=== PATIENT | male | born 1980 | race Caucasian/White ===

== ENCOUNTER 2023-08-31 12:46 | Emergency (ER) | payer OTHER, SELFPAY ==
[2023-08-31] VITALS (11 sets, daily range): BP systolic 121–148; BP diastolic 75–99; PULSE 70–90; RESP 8–95; TEMP 36.7; O2SAT 93–100
--- NOTE | ~2023-08-31 | CT_ITS ---
CT of the Abdomen and Pelvis: Indication: Abdominal pain Technique: 2.5 mm axial scans were obtained through the abdomen and pelvis following intravenous adm inistration of 100 cc of Omnipaque 350. Dose reduction technique was used on this scan by utilizing a utomated exposure control and iterative reconstruction technique. The dose-length product (DLP) was 4 79.55 mGy-cm. Findings: Scans through the lung bases are unremarkable. The liver, spleen, pancreas, gallbladder, adrenals and kidneys are within normal limits. No evidence of aortic aneurysm. No lymphadenopathy. There are a few mildly distended small bowel loops present. No bowel wall thickening or inflammatory process evident. Images through the pelvis were performed. Urinary bladder unremarkable. No pelvic mass seen. No ascit es. Impression: Several mildly distended small bowel loops. Consider early or partial small bowel obstruction. Reviewed, dictated and finalized at [facility]. D BANK MANAGER Impression: Several mildly distended small bowel loops. Consider early or partial small bow el obstruction.
--- NOTE | ~2023-08-31 | US_ITS ---
Limited Abdominal Sonogram: Real-time sonographic imaging of the right upper quadrant was performed. Clinical History: Right upper quadrant pain Findings: The liver appears normal with no evidence of mass lesion or bile duct dilatation. Main por love vein demonstrates normal direction of flow. The gallbladder is well distended, and appears normal with no evidence of gallstone or wall thickening. The common bile duct measures 2 mm. The visualize d pancreas, aorta, and IVC are unremarkable. Impression: No significant abnormality seen. Reviewed, dictated and finalized at location M. UCT DESIGNER Impression: No significant abnormality seen.
[2023-08-31 13:06] LABS: Basophils Percent Auto 0.4 % (0.2-1.2); Eosinophils Absolute Auto 0.1 K/mm3 (0-0.3); Eosinophils Percent Auto 1.3 % (0-4.4); Hematocrit 40.9 % (42.0-52.0); Hemoglobin 13.6 g/dL (14.0-18.0); Immature Granulocyte Absolute 0.01 K/mm3 (0.00-0.031); Immature Granulocyte Percent A 0.2 % (0-0.5); Lymphocytes Absolute Auto 1.17 K/mm3 (0.9-3.2); Mean Corpuscular HGB Conc 33.3 g/dl (32-36); Mean Corpuscular Hemoglobin 30.2 pg (26-34); Mean Corpuscular Volume 90.7 fl (80-100); Mean Platelet Volume 10.1 fl (7.4-10.4); Monocytes Absolute Auto 0.5 K/mm3 (0.1-0.6); Monocytes Percent Auto 9.4 % (2.6-8.5); Neutrophils Absolute Auto 3.5 K/mm3 (1.3-6.7); Neutrophils Percent Auto 66.7 % (45.5-73.1); Platelet Count Result 313 k/mm3 (150-375); Red Blood Count 4.51 M/mm3 (4.6-6.20); Red Cell Distribution Width 11.8 % (11.5-14.5); White Blood Count 5.3 K/mm3 (4.5-10.0)
[2023-08-31 13:16] LABS: Alanine Aminotransferase 77 U/L (6-50); Albumin Level 4.5 g/dL (3.5-5.1); Alkaline Phosphatase 76 U/L (38-126); Anion Gap 8 mmol/L (8-16); Aspartate Amino Transferase 63 U/L (17-59); Bilirubin,Total 0.5 mg/dL (0.2-1.3); Blood Urea Nitrogen 15 mg/dL (9-20); Calcium 9.5 mg/dL (8.4-10.2); Carbon Dioxide 28 mmol/L (22-30); Chloride 104 mmol/L (98-107); Estimated Glomerular Filt Rate > 60; Glucose 114 mg/dL (65-110); Lipase 114 U/L (23-300); Potassium 4.1 mmol/L (3.4-5.0); Sodium 140 mmol/L (137-145)
[2023-08-31] MEDS: SODIUM CHLORIDE 0.9% IV 1,000 ML 999 ML IV CONT (14:25)
[2023-08-31] MEDS: ONDANSETRON INJ 4 MG/2 ML VIAL IV PUSH (14:28)
[2023-08-31] MEDS: MORPHINE SULFATE (*CRX) 4 MG/ML INJ IV PUSH ×2 (14:29→17:34)
[2023-08-31 16:11] LABS: Appearance Urine Clear (Clear); Bilirubin Urine Negative (Negative); Blood Urine Negative (Negative); Color Urine Yellow (Yellow); Glucose Urine UA Negative (Negative); Ketones Urine 1+ mg/dL (Negative); Leukocyte Esterase Ur Negative LEU/UL (Negative); Nitrate Urine Negative (Negative); Protein Urine Negative (Negative); Specific Grav Ur 1.023 (1.001-1.035); Urobilinogen Urine 0.2 mg/dL (<2.0); pH Urine 6.5 (5.0-9.0)
[2023-08-31 16:16] LABS: Add Urine Microscopic? NO
--- NOTE | 2023-08-31 17:45 | ED.GENADULT ---
HPI - General Adult General Chief complaint: Abdominal Pain Stated complaint: abd cramps/vomiting Time Seen by Provider: 08/31/23 13:34 History of Present Illness HPI narrative: patient is a 42-year-old male who presents ER with right upper quadrant abdominal pain. Sudden onset today. If he feels fullness expanding process upper abdomen and towards his back. No urinary frequency urgency or dysuria. No alleviating factors. Denies association with eating or drinking. Has not had similar pain in the past. He does have vomiting related to this. Related Data Allergies Allergy/AdvReac Type Severity Reaction Status Date / Time No Known Allergies Allergy Verified 08/31/23 12:46 Review of Systems Review of Systems: All systems reviewed & are unremarkable except as noted in HPI and below Constitutional: Constitutional: Reports no additional constitutional complaints ENT: Reports system reviewed and no additional complaints, except as documented Cardiovascular: Cardiovascular: Reports no additional cardiovascular complaints Respiratory: Respiratory: Reports no additional respiratory complaints Gastrointestinal: Gastrointestinal: Reports abdominal pain, Reports bloating, Denies diarrhea, Reports nausea and Reports vomiting Genitourinary: Genitourinary: Reports no additional male genitourinary complaints Musculoskeletal: Musculoskeletal: Reports no additional musculoskeletal complaints Exam Narrative: GENERAL: Well-appearing, well-nourished, and in no acute distress. HEAD: Normocephalic, atraumatic. ENT: Mucous membranes moist. CHEST: Clear to auscultation. No respiratory distress. HEART: Regular rate and rhythm. Normal peripheral pulses. ABDOMEN: Soft, TTP in RUQ with guarding, nondistended, normal active bowel sounds. EXTREMITIES: Normal range of motion. No edema. SKIN: Warm, dry, no rash. NEURO: Alert and oriented x3. PSYCH: Normal mood and affect. Course Course Emergency Course: Mild improvement in pain but still with guarding to the RUQ. Will preform a CT and redose meds. 1823: No previous surgery because bowel obstruction. He did have a bowel movement today. Discussed with General surgery. Reviewed CT scan in have identified which is cecal appendix that does not appear dilated or to have stranding. Likely enteritis picture and patient be given supportive care. Vital Signs Vital signs: Vital Signs Temperature 98.1 F 08/31/23 12:47 Pulse Rate 89 08/31/23 12:47 Respiratory Rate 95 H 08/31/23 12:47 Blood Pressure 148/99 H 08/31/23 12:47 Pulse Oximetry 100 08/31/23 12:47 Oxygen Delivery Room Air 08/31/23 12:47 Temperature 98.1 F 08/31/23 12:47 Pulse Rate 89 08/31/23 12:47 Respiratory Rate 95 H 08/31/23 12:47 Blood Pressure 148/99 H 08/31/23 12:47 Pulse Oximetry 100 08/31/23 12:47 Oxygen Delivery Room Air 08/31/23 12:47 Medical Decision Making Vital Signs Vital Signs: Vital Signs Temperature 98.1 F 08/31/23 12:47 Pulse Rate 89 08/31/23 12:47 Respiratory Rate 95 H 08/31/23 12:47 Blood Pressure 148/99 H 08/31/23 12:47 Pulse Oximetry 100 08/31/23 12:47 Oxygen Delivery Room Air 08/31/23 12:47 Temperature 98.1 F 08/31/23 12:47 Pulse Rate 89 08/31/23 12:47 Respiratory Rate 95 H 08/31/23 12:47 Blood Pressure 148/99 H 08/31/23 12:47 Pulse Oximetry 08/31/23 12:47 Oxygen Delivery Room Air 08/31/23 12:47 Lab Data 08/31/23 12:58 08/31/23 12:58 Labs: Lab Results 08/31/23 08/31/23 Range/Units 12:58 16:05 WBC 5.3 (4.5-10.0) K/mm3 RBC 4.51 L (4.6-6.20) M/mm3 Hgb 13.6 L (14.0-18.0) g/dL Hct 40.9 L (42.0-52.0) % MCV 90.7 (80-100) fl MCH 30.2 (26-34) pg MCHC 33.3 (32-36) g/dl RDW 11.8 (11.5-14.5) % Plt Count 313 (150-375) k/mm3 MPV 10.1 (7.4-10.4) fl Immature Gran % (Auto) 0.2 (0-0.5) % Neut % (Auto) 66.7 (45.5-73.1) % Lym
== END 2023-08-31 18:35 | disposition home or self-care (01) ==
PROVIDERS: Emergency Provider Emergency Medicine
DX: K52.9 Noninfective gastroenteritis and colitis, unspecified (principal)
CPT/HCPCS: 36415; 74177; 76705; 80053; 81003; 83690; 85025; 96361; 96374; 96375; 96376; 99284; J2270; J2405; J7030; Q9967

== ENCOUNTER 2023-09-01 04:53 | Inpatient (IN) | payer OTHER, SELFPAY ==
[2023-09-01] VITALS (13 sets, daily range): BP systolic 113–140; BP diastolic 65–97; PULSE 84–112; RESP 12–20; TEMP 36.4–37.3; O2SAT 95–100
--- NOTE | ~2023-09-01 | XR_ITS ---
EXAMINATION: XR sm bowel follow through DATE: 09/01/2023 12:11 INDICATION: Small bowel obstruction. TECHNIQUE: Oral contrast was administered, and a time course of radiographs of the abdomen was obtain ed. Fluoroscopy of the small bowel was not performed. Fluoroscopy exposure time was 0 minutes. The to love number of images was 3. COMPARISON: CT abdomen and pelvis 09/01/2023 FINDINGS: The nasogastric tube tip is in the stomach. There are multiple dilated loops of small bowel. The exam was terminated at 30 minutes at the request of the surgeon. IMPRESSION: 1. Small bowel obstruction. Reviewed, dictated and finalized at location A. O LAB TECHNICIAN IMPRESSION: 1. Small bowel obstruction.
--- NOTE | ~2023-09-01 | CT_ITS ---
CT of the Abdomen and Pelvis: Indication: Bowel obstruction Technique: 2.5 mm axial scans were obtained through the abdomen and pelvis following intravenous adm inistration of 100 cc of Omnipaque 350. Dose reduction technique was used on this scan by utilizing a utomated exposure control and iterative reconstruction technique. The dose-length product (DLP) was 4 27.88 mGy-cm. COMPARISON: 08/31/2023 Findings: Scans through the lung bases are unremarkable. The liver, spleen, pancreas, gallbladder, adrenals and kidneys are within normal limits. No evidence of aortic aneurysm. No lymphadenopathy. There is persistent dilatation of several small bowel loops in the midabdomen, with small amount of a scites now present in the perihepatic region. Possible mild wall thickening of several small bowel lo ops. Large bowel unremarkable. Images through the pelvis were performed. Urinary bladder unremarkable. No pelvic mass seen. Small am ount of pelvic ascites present. Impression: Persistent dilatation of several small bowel loops in the mid abdomen with possible mild wall thicken ing. Correlate for early small bowel obstruction endometritis. Small amount of abdominopelvic ascites, increased from prior exam. Reviewed, dictated and finalized at location . RLIBRARY LOAN SERVICES LIBRARIAN Impression: Persistent dilatation of several small bowel loops in the mid abdomen with poss ible mild wall thickening. Correlate for early small bowel obstruction endometr itis. Small amount of abdominopelvic ascites, increased from prior exam.
--- NOTE | ~2023-09-01 | XR_ITS ---
Upright view of the abdomen Clinical history: NG tube placement Findings: NG tube is in satisfactory position. Bowel gas pattern is nonspecific. No evidence for obst ruction or free air. No abnormal mass lesion or calcification is seen. Osseous structures are intact. Impression: NG tube in place. Reviewed, dictated and finalized at location . [employer] Impression: NG tube in place.
[2023-09-01 05:34] LABS: Basophils Percent Auto 0.2 % (0.2-1.2); Hematocrit 42.6 % (42.0-52.0); Hemoglobin 14.2 g/dL (14.0-18.0); Immature Granulocyte Absolute 0.03 K/mm3 (0.00-0.031); Immature Granulocyte Percent A 0.3 % (0-0.5); Lymphocytes Absolute Auto 0.62 K/mm3 (0.9-3.2); Lymphocytes Percent Auto 5.7 % (18.3-44.2); Mean Corpuscular HGB Conc 33.3 g/dl (32-36); Mean Corpuscular Hemoglobin 30.2 pg (26-34); Mean Corpuscular Volume 90.6 fl (80-100); Mean Platelet Volume 10.4 fl (7.4-10.4); Monocytes Absolute Auto 0.4 K/mm3 (0.1-0.6); Monocytes Percent Auto 3.6 % (2.6-8.5); Neutrophils Absolute Auto 9.8 K/mm3 (1.3-6.7); Neutrophils Percent Auto 90.2 % (45.5-73.1); Platelet Count Result 370 k/mm3 (150-375); Red Cell Distribution Width 11.9 % (11.5-14.5); White Blood Count 10.9 K/mm3 (4.5-10.0)
[2023-09-01 05:42] LABS: Alanine Aminotransferase 69 U/L (6-50); Albumin Level 4.5 g/dL (3.5-5.1); Alkaline Phosphatase 72 U/L (38-126); Anion Gap 10 mmol/L (8-16); Aspartate Amino Transferase 52 U/L (17-59); Bilirubin,Total 0.6 mg/dL (0.2-1.3); Blood Urea Nitrogen 8 mg/dL (9-20); Calcium 9.4 mg/dL (8.4-10.2); Carbon Dioxide 29 mmol/L (22-30); Chloride 100 mmol/L (98-107); Estimated CRCL calculation 109 ml/min; Estimated Glomerular Filt Rate > 60; Glucose 151 mg/dL (65-110); Lipase 93 U/L (23-300); Potassium 3.9 mmol/L (3.4-5.0); Sodium 139 mmol/L (137-145)
[2023-09-01] MEDS: HYDROmorphone HCL INJ (*CRX) 1 MG/ML SYR 0.5 MG IV PUSH ×4 (06:06→15:27)
[2023-09-01] MEDS: SODIUM CHLORIDE 0.9% IV 2,000 ML 999 ML IV CONT (06:06)
--- NOTE | 2023-09-01 06:57 | ED.GENADULT ---
HPI - General Adult General Chief complaint: Abdominal Pain Stated complaint: abd pain, N/V Time Seen by Provider: 09/01/23 05:21 History of Present Illness HPI narrative: This is a 42-year-old male presenting With abdominal pain nausea vomiting. He was seen yesterday evening at that time CT was concerning for small bowel obstruction versus gastroenteritis. The patient was discharged home with symptomatic treatment. Overnight he continued to have vomiting. He is now no longer passing gas and has not had a bowel movement. he also has worsening abdominal pain that is no longer localized to the upper abdomen is not spread to the rest of his abdomen. Related Data Allergies Allergy/AdvReac Type Severity Reaction Status Date / Time No Known Allergies Allergy Verified 08/31/23 12:46 Exam Narrative: APPEARANCE: No apparent distress. Head: atraumatic. EYES: EOMI, NOSE: Atraumatic NECK: Trachea midline RESPIRATORY: No increased rate of breathing CARDIOVASCULAR: RRR, ABDOMINAL: Tenderness to palpation in the upper quadrants with voluntary guarding, Lower abdomen soft MUSCULOSKELETAl: No obvious deformities NEURO: Alert. Moving 4/4 extremities SKIN:: Warm, dry. Normal color PSYCHIATRIC: Normal affect Course Vital Signs Vital signs: Vital Signs Temperature 97.6 F 09/01/23 04:59 Pulse Rate 90 09/01/23 04:59 Respiratory Rate 18 09/01/23 04:59 Blood Pressure 134/89 09/01/23 04:59 Pulse Oximetry 99 09/01/23 04:59 Oxygen Delivery Room Air 09/01/23 04:59 Temperature 97.6 F 09/01/23 04:59 Pulse Rate 89 09/01/23 06:10 Respiratory Rate 15 09/01/23 06:10 Blood Pressure 140/97 H 09/01/23 06:10 Pulse Oximetry 100 09/01/23 06:10 Oxygen Delivery Room Air 09/01/23 04:59 Medical Decision Making [facility] Narrative Medical decision making narrative: -Course: 42-year-old male presenting with nausea vomiting and abdominal pain. Patient's exam shows exquisite tenderness in the upper quadrants. Seen yesterday and there was concerns for small bowel obstruction but after consultation with surgery was eventually discharged with a diagnosis of gastroenteritis. Patient has continued to have severe abdominal pain and nausea and vomiting. Repeat CT shows he still has dilated loops of bowel that are achieved. He is no longer having diarrhea or passing gas. An NG tube had been placed. Patient given fluids and pain medication. -DDX includes but is not limited to: SBO, ileus, -Social determinants of health: Self-employed, his appy -External Chart Review: review of previous ER notes. -Independent interpretation of studies: Laboratory studies within normal limits. CT Abdomen/pelvis: Persistent dilatation of several small bowel loops in the mid abdomen with possible mild wall thickening. Correlate for early small bowel obstruction endometritis. Small amount of abdominopelvic ascites, increased from prior exam. -Discussion of Management/Consultants: Barber - Surgery -Interventions: 2 L normal saline, Dilaudid .5 -Shared decision making / Disposition: Admitted to surgery service. Vital Signs Vital Signs: Vital Signs Temperature 97.6 F 09/01/23 04:59 Pulse Rate 90 09/01/23 04:59 Respiratory Rate 18 09/01/23 04:59 Blood Pressure 134/89 09/01/23 04:59 Pulse Oximetry 99 09/01/23 04:59 Oxygen Delivery Room Air 09/01/23 04:59 Temperature 97.6 F 09/01/23 04:59 Pulse Rate 89 09/01/23 06:10 Respiratory Rate 15 09/01/23 06:10 Blood Pressure 140/97 H 09/01/23 06:10 Pulse Oximetry 100 09/01/23 06:10 Oxygen Delivery Room Air 09/01/23 04:59 Lab Data 09/01/23 05:15 09/01/23 05:15 Labs: Lab Results 09/01/23 Range/Units 05:15 WBC 10.9 H (4.5-10.0) K/mm3 RBC 4.70 (4.6-6.20) M/mm3 Hgb 14.2 (14.0-18.0) g/dL Hct 42.6 (42.0-52.0) % MCV 90.6 (80-100) fl MCH 30.2 (26-34) pg MCHC 33.3 (32-36)
[2023-09-01] MEDS: LORazepam INJ (*CRX) 2 MG/ML VIAL 0.5 MG IV PUSH (07:44)
--- NOTE | 2023-09-01 07:45 | PC.NURSE ---
ativan given for anxiety related to NGT
--- NOTE | 2023-09-01 08:02 | ADMGEN ---
This patient, Jae Salas II, was admitted to [facility] Surg Room 329-01. Patient/family oriented to hospital policies and general routines including ID bracelet, bed and alarms, visiting hours, pain management, procedures, bathroom and other care routines, personal items, smoking policy, room service/diet, and visiting hours. Information on how to activate the Rapid Response Team has been discussed. Patient/Family are encouraged to report perceived risks to care and to ask questions if they do not understand what they are told or what they should do.
[2023-09-01] MEDS: LACTATED RINGERS 1,000 ML 125 ML IV CONT (08:15)
[2023-09-01] MEDS: ONDANSETRON INJ 4 MG/2 ML VIAL IV PUSH ×2 (10:07→15:26)
--- NOTE | 2023-09-01 10:24 | PM.IMHP ---
H&P: HPI History of Present Illness Date/Time: 09/01/23 10:24 Chief Complaint: Abdominal pain Narrative: This is a 42-year-old man with no significant medical history and no previous surgical history. He woke up yesterday morning feeling otherwise normal, and by 8:30 a.m. developed nausea, vomiting, and epigastric abdominal pain. He had not eaten anything in the morning prior to his symptoms. He had one small loose bowel movement around 7:30 am that morning prior to his symptoms. Denies any recent diarrhea. Initially, his abdominal pain was in the epigastric area and he decided to present to the ER yesterday afternoon. Workup showed a normal white blood cell count. He had a right upper quadrant ultrasound due to his right upper quadrant and epigastric pain and tenderness, which showed no significant abnormality. CT scan of the abdomen and pelvis showed possible early/partial small bowel obstruction. The ER physician did call the surgeon and it was felt that he potentially had gastroenteritis. His abdominal pain improved in the ER. He was discharged home with simethicone, dicyclomine, and Zofran. He did not worm picker the prescriptions and has not taken any of these medications. At home, he tried eating some chicken noodle soup. He went to sleep and woke up around 11:00 p.m. with vomiting. He reportedly threw up what he ate. His abdominal pain progressively worsened throughout the night, which prompted him to return to the ER early this morning. Labs showed his white blood cell count went up slightly to 10,900. CT scan of the abdomen and pelvis repeated and showed persistent dilation of several small bowel loops in the mid abdomen with possible mild wall thickening, correlate for early small-bowel obstruction. Small amount of abdominal pelvic ascites increased from previous CT. He had an NG tube placed and was admitted to the medical floor. He is currently NPO with IV fluids and received IV Dilaudid in the ER. He reports having some relief in his pain when he received IV Dilaudid around 6:00 a.m., but his pain has gotten worse again in the past few hours. On my exam, he began dry heaving around the NG tube. He appears uncomfortable and is requesting pain medication. He has had about 300 cc out of the NG tube in the past 2 hours. He denies any flatus or BM since yesterday morning since before his symptoms started. No previous abdominal surgeries or previous bowel obstructions. He reports having a colonoscopy about 15 years ago for blood in his stool that resolved after changing his diet. Denies any known personal or family history of inflammatory bowel disease. He reports his mother and sister have had issues with their bowels in the past, but is unsure of the details. No recent sick contacts. No recent antibiotics. Review of Systems Review of Systems: All systems reviewed & are unremarkable except as noted in HPI and below Constitutional: Constitutional: Reports no additional constitutional complaints, Denies chills, Denies fatigue, Denies fever(s) and Denies headache(s) Eyes: Eyes: Reports no additional eye complaints ENT: Reports system reviewed and no additional complaints, except as documented and Denies dizziness Cardiovascular: Cardiovascular: Reports no additional cardiovascular complaints, Denies chest pain and Denies leg edema Respiratory: Respiratory: Reports no additional respiratory complaints, Denies cough and Denies dyspnea Gastrointestinal: Gastrointestinal: Reports as per HPI, Reports no additional gastrointestinal complaints, Reports abdominal pain, Denies melena, Reports bloating, Denies hematochezia, Denies change in bowel habits, Denies coffee ground emesis, Denies constipation, Denies diarrhea, Reports nausea, Reports vomiting and Denies hematemesis Genitourinary: Genitourinary: Reports no additional male genitourinary complaints and Denies dysuria Musculoskeletal: Musculoskeletal: Reports no additional musculoskelet
[2023-09-01 10:49] LABS: Lactic Acid Reflex 1.1 mmol/L (0.7-2.0)
--- NOTE | 2023-09-01 12:23 | WPDHPUPDATE1 ---
History and Physical Update Update Date/Time: 09/01/23 12:23 History and Physical has been reviewed, including an updated exam of the patient. There are NO changes in the patient's condition. Risks, benefits, and alternatives have been discussed and questions answered. Patient agrees to proceed with procedure.
--- NOTE | 2023-09-01 17:13 | WPDANESEPPF ---
Anes - Initial Pre Proc Eval Procedure: Operation Date: 09/01/23 16:30 Proposed Procedures p Diagnostic Laparoscopy, Possible Open, Possible Bowel Resection - Jonathan Blandon DO Date/Time: 09/01/23 17:13 Surgeon: Jonathan Blandon DO Pre Op Diagnosis: SBO/Ileus Patient Data Age: 42 Gender: M Height: 1.78 m Weight: 81.8 kg Last Vital Signs Temp 37.2 C 09/01/23 16:30 Pulse 86 09/01/23 16:30 Resp 12 09/01/23 16:30 BP 138/85 09/01/23 16:30 Pulse Ox 97 09/01/23 16:30 O2 Del Method Room Air 09/01/23 16:30 Allergies Allergy/AdvReac Type Severity Reaction Status Date / Time No Known Allergies Allergy Verified 08/31/23 12:46 Home Medications Medication Instructions Recorded Confirmed Type dicyclomine 20 mg tablet 20 mg PO QID #20 tabs 08/31/23 Rx ondansetron 4 mg disintegrating 4 mg PO Q6H PRN nausea and 08/31/23 Rx tablet vomiting #10 tabs simethicone 125 mg chewable tablet 125 mg PO TID PRN abdominal 08/31/23 Rx (Mylanta Gas) distention #20 tabs Laboratory Tests 09/01/23 09/01/23 05:15 10:27 WBC 10.9 H K/mm3 (4.5-10.0) RBC 4.70 M/mm3 (4.6-6.20) Hgb 14.2 g/dL (14.0-18.0) Hct 42.6 % (42.0-52.0) MCV 90.6 fl (80-100) MCH 30.2 pg (26-34) MCHC 33.3 g/dl (32-36) RDW 11.9 % (11.5-14.5) Plt Count 370 k/mm3 (150-375) MPV 10.4 fl (7.4-10.4) Immature Gran % (Auto) 0.3 % (0-0.5) Neut % (Auto) 90.2 H % (45.5-73.1) Lymph % (Auto) 5.7 L % (18.3-44.2) Woodward % (Auto) 3.6 % (2.6-8.5) Eos % (Auto) 0.0 % (0-4.4) Baso % (Auto) 0.2 % (0.2-1.2) Lymph # (Auto) 0.62 L K/mm3 (0.9-3.2) Woodward # (Auto) 0.4 K/mm3 (0.1-0.6) Eos # (Auto) 0.0 K/mm3 (0-0.3) Baso # (Auto) 0.0 K/mm3 (0.0-0.1) Abs Immat Gran (auto) 0.03 K/mm3 (0.00-0.031) Absolute Neuts (auto) 9.8 H K/mm3 (1.3-6.7) Absolute Nucleated RBC 0.0 K/mm3 (0.0-0.012) Nucleated RBC % 0.0 % (0.0-0.2) Sodium 139 mmol/L (137-145) Potassium 3.9 mmol/L (3.4-5.0) Chloride 100 mmol/L (98-107) Carbon Dioxide 29 mmol/L (22-30) Anion Gap 10 mmol/L (8-16) BUN 8 L D mg/dL (9-20) Creatinine 0.80 mg/dL (0.7-1.3) Estim Creat Clear Calc 109 ml/min Estimated GFR > 60 (59 - ) Glucose 151 H mg/dL (65-110) Lactic Acid 1.1 mmol/L (0.7-2.0) Calcium 9.4 mg/dL (8.4-10.2) Total Bilirubin 0.6 mg/dL (0.2-1.3) AST 52 U/L (17-59) ALT 69 H U/L (6-50) Alkaline Phosphatase 72 U/L (38-126) Total Protein 8.0 g/dL (6.3-8.2) Albumin 4.5 g/dL (3.5-5.1) Lipase 93 U/L (23-300) Patient hx anesthesia problems: none Family hx anesthesia problems: none Results Review: All pre-operative results and documents have been reviewed as part of the pre-operative evaluation. [facility] Past Medical History Medical History No pertinent past medical history Surgical History Surgical History No pertinent past surgical history Social History Social History Smoking status: Never smoker Alcohol intake: current Drinks per week: 2 Substance use: never Substance use type: does not use Do You Feel Safe in your Home?: Yes Lack of Transportation: No Lack of Food: Never True Current Housing: I Have Housing Concerned About Future Housing: No Difficulty Paying Gas/Electric Bills: No Difficulty Paying for Meds: No Currently Unemployed: No Education: Associate Degree Difficulty w/ Childcare or Family Care: No Spiritual care concerns: No Anes - Eval Final PreProcedure Day of Procedure 09/01/23 17:13 Patient w
[2023-09-01] MEDS: ceFAZolin 2 GM/D5W 50 ML 2 GM/50 ML BAG IVPB (17:48)
[2023-09-01] MEDS: BUPIVACAINE/EPINEPHRINE 0.5% 30 ML VIAL INFILTRATE (18:18)
--- NOTE | 2023-09-01 18:29 | W.PM.PROC2 ---
Procedure Note - Detailed Date of Procedure 09/01/23 Pre-op Diagnosis Closed loop small bowel obstruction Post-op Diagnosis Same Procedure Performed Laparoscopic enterolysis Surgeon Jonathan Blandon, DO Anesthesia General and Local (0.5% bupivacaine with epinephrine) Indications This is a 42-year-old man who presented to the emergency department with abdominal pain that started yesterday morning. He had a bowel movement yesterday but began gradually experiencing worsening generalized abdominal pain. He had never had symptoms like this in the past and denied any prior surgery or history of trauma to his abdomen. CT in the emergency department showed a small-bowel obstruction and some bowel wall edema. His lactate level was normal. NG tube was placed and he was admitted to the hospital. After reviewing the CT with the radiologist, there did appear to be signs of a closed-loop small-bowel obstruction. Discussions were made with the patient about treatment options and decision was made to proceed with diagnostic laparoscopy, possible open, possible bowel resection. Findings Diagnostic laparoscopy was performed. Upon entering the abdomen there did appear to be some clear ascites and some mildly dilated loops of small bowel. The distal small bowel did appear to be decompressed. I gently reflected the omentum anterior and cephalad and identified an area of omental adhesion in the right mid abdomen. This was causing a closed loop bowel obstruction with a loop of jejunum. The loop of jejunum within this area did did appear healthy and viable with just mild erythema and edema. The adhesive band came down with blunt dissection and this freed up the loop of small bowel. I then ran the bowel from the ligament of Treitz to the ileocecal valve. No other signs of obstruction were identified and no other abnormalities were seen. About 400 mL of clear reactive ascites was aspirated from the abdominal cavity. No specimens were obtained for pathology. Description of Procedure Procedure as well as risks, benefits, and alternatives were discussed with the patient. Written consent was obtained and placed in chart prior to procedure. Patient was brought back to surgical suite. He was placed supine on operating table. Time-out was done to confirm patient and procedure. He was then intubated by the anesthesia department. His abdomen was prepped and draped in sterile fashion using chlorhexidine prep. A 5 mm incision was made in the left upper quadrant just below the costal margin and a 5 mm Optiview trocar was advanced through the abdominal layers under direct visualization. Once inside the abdominal cavity, carbon dioxide insufflation was used to create a pneumoperitoneum. The camera was inserted in the abdomen was inspected. Another 5 mm incision was made in the left lower quadrant a 5 mm trocar was inserted under direct visualization. One more 5 mm incision was made in the suprapubic region a midline and a 5 mm trocar was inserted under direct visualization. 0.5% bupivacaine with epinephrine was infiltrated locally at each of the incision sites. A careful thorough inspection of the abdominal cavity was performed. The omentum was gently retracted anteriorly and I identified an adhesive band causing the obstruction. The adhesive band appeared to be piece of the omentum adherent to mesentery causing a closed loop obstruction. I was able to bluntly take down the adhesive band using to laparoscopic graspers and then reflect the omentum cephalad over the transverse colon and liver. The bowel that was contained within the closed loop did appear healthy and viable with only mild edema and erythema. There was no evidence of ischemia or necrosis. The bowel was then run distally to the ileocecal valve and all the distal bowel appeared decompressed. Bowel was then also run proximally to the ligament of Treitz and no other abnormalities were noted. The ascites was aspirated u
[2023-09-01] MEDS: LACTATED RINGERS 1,000 ML 30 ML IV CONT (18:36)
[2023-09-01] MEDS: LACTATED RINGERS 1,000 ML 100 ML IV CONT (20:36)
[2023-09-02 01:45] VITALS: BP 112/73; PULSE 78; RESP 16; TEMP 36.7; O2SAT 97
[2023-09-02 05:27] VITALS: BP 117/64; PULSE 81; RESP 14; TEMP 36.7; O2SAT 98
[2023-09-02 07:26] LABS: Basophils Percent Auto 0.4 % (0.2-1.2); Eosinophils Absolute Auto 0.2 K/mm3 (0-0.3); Eosinophils Percent Auto 2.1 % (0-4.4); Immature Granulocyte Absolute 0.02 K/mm3 (0.00-0.031); Immature Granulocyte Percent A 0.3 % (0-0.5); Lymphocytes Absolute Auto 1.67 K/mm3 (0.9-3.2); Lymphocytes Percent Auto 23.8 % (18.3-44.2); Mean Corpuscular HGB Conc 32.4 g/dl (32-36); Mean Corpuscular Hemoglobin 30.3 pg (26-34); Mean Corpuscular Volume 93.4 fl (80-100); Mean Platelet Volume 10.8 fl (7.4-10.4); Monocytes Absolute Auto 0.7 K/mm3 (0.1-0.6); Monocytes Percent Auto 10.5 % (2.6-8.5); Neutrophils Absolute Auto 4.4 K/mm3 (1.3-6.7); Neutrophils Percent Auto 62.9 % (45.5-73.1); Platelet Count Result 250 k/mm3 (150-375); Red Blood Count 3.96 M/mm3 (4.6-6.20); Red Cell Distribution Width 11.9 % (11.5-14.5)
[2023-09-02 07:45] LABS: Anion Gap 3 mmol/L (8-16); Blood Urea Nitrogen 6 mg/dL (9-20); Calcium 8.5 mg/dL (8.4-10.2); Carbon Dioxide 29 mmol/L (22-30); Chloride 106 mmol/L (98-107); Estimated CRCL calculation 124 ml/min; Estimated Glomerular Filt Rate > 60; Glucose 92 mg/dL (65-110); Potassium 3.5 mmol/L (3.4-5.0); Sodium 138 mmol/L (137-145)
[2023-09-02 09:27] VITALS: BP 139/74; PULSE 105; RESP 20; TEMP 36.6; O2SAT 99
--- NOTE | 2023-09-02 10:36 | PM.PNGS ---
Progress Note: A&P Assessment and Plan (1) Small bowel obstruction: Code(s): K56.609 - Unspecified intestinal obstruction, unspecified as to partial versus complete obstruction Status: Acute Assessment and Plan: Postop day 1 following laparoscopic enterolysis and doing well. He was found to have an adhesive band causing a closed loop bowel obstruction. Awaiting full return of bowel function. Will start advancing diet to full liquids Encourage walking the halls Plan I have discussed the patient's case and plan of care with Dr. Blandon. Subjective Subjective Date/Time Seen: 09/02/23 10:36 Post Op day: 1 (laparoscopic enterolysis) Patient reports: no new complaints, feels better, tolerating liquids well, voiding w/o difficulty, flatus and no bowel movement Interval history: Patient reports feeling great today. He reports his abdominal pain prior to surgery has completely resolved. NG tube was removed during surgery. He denies any incisional pain or soreness. He is walking the halls and tolerating this well. Reports flatus this morning. No nausea or vomiting. Bloating has resolved. No other complaints at this time. Review of Systems Review of Systems: All systems reviewed & are unremarkable except as noted in HPI and below Exam Const: General: comfortable and no acute distress Orientation/consciousness: patient oriented x3 GI: Inspection: non-distended and incision (Dry and glue intact) GI Palp: Yes Soft to palpation, No Tenderness to palpation present (GI), No Guarding due to palpation present (GI) and No Rebound tenderness present Auscultation: normal bowel sounds Objective Data Vital Signs Vital Signs: Vital Signs - 24 hr 09/01/23 13:48 09/01/23 16:30 09/01/23 18:36 Temperature 97.8 F 98.9 F 98.2 F Pulse Rate 95 86 112 H Respiratory Rate 20 12 16 Blood Pressure 115/74 138/85 128/65 Pulse Oximetry 98 97 99 Oxygen Delivery Room Air Simple Face Mask Oxygen Flow Rate 10 09/01/23 18:50 09/01/23 18:55 09/01/23 19:05 Temperature Pulse Rate 98 93 Respiratory Rate 16 16 Blood Pressure 134/69 126/72 Pulse Oximetry 100 98 Oxygen Delivery Simple Face Mask Room Air Room Air Oxygen Flow Rate 10 09/01/23 19:20 09/01/23 19:35 09/01/23 21:00 Temperature 98.9 F 98.4 F Pulse Rate 89 96 87 Respiratory Rate 16 16 16 Blood Pressure 122/72 115/70 117/74 Pulse Oximetry 95 97 99 Oxygen Delivery Room Air Room Air Oxygen Flow Rate 09/01/23 21:15 09/01/23 20:45 09/02/23 01:45 Temperature 98.6 F 98.3 F 98.1 F Pulse Rate 92 84 78 Respiratory Rate 16 16 16 Blood Pressure 113/69 115/70 112/73 Pulse Oximetry 97 98 97 Oxygen Delivery Oxygen Flow Rate 09/02/23 05:27 09/02/23 09:27 Temperature 98.1 F 97.8 F Pulse Rate 81 105 H Respiratory Rate 14 20 Blood Pressure 117/64 139/74 Pulse Oximetry 98 99 Oxygen Delivery Oxygen Flow Rate Intake/Output Intake/Output: Intake & Output 08/30/23 08/31/23 09/01/23 09/02/23 23:59 23:59 23:59 23:59 Intake Total 150 118 Output Total 1300 750 Balance -2166 -012 Meds/Results Medications: Active Medications Generic Name Dose Route Start Last Admin Trade Name Freq PRN Reason Stop Dose Admin Hydrocodone Bitart/Acetaminophen 1 tab 09/01/23 19:42 Hydrocodone/Acetaminophen (*Crx) 5-325 Mg Tablet PO Q4H PRN Pain Rated 4-6 Hydrocodone Bitart/Acetaminophen 1 tab 09/01/23 19:42 Hydrocodone/Acetaminophen (*Crx) 7.5-325 Mg Tablet PO Q4H PRN Pain Rated 7-10 Ibuprofen 600 mg 09/01/23 19:42 Ibuprofen 600 Mg Tablet PO Q6H PRN Pain Rated 1-3 Morphine Sulfate 2 mg 09/01/23 19:42 Morphine Sulfate (*Crx) 2 Mg/Ml Inj IV PUSH Q2H PRN Pain Rated 4-6 Morphine Sulfate 4 mg 09/01/23 19:42 Morphine Sulfate (*Crx) 4 Mg/Ml Inj IV PUSH Q2H PRN Pain Rated 7-10 Naloxone HCl 0.1 mg 09/01/23 19:42 Naloxone Hcl 0.4 Mg/Ml Vial IV PUSH
[2023-09-02 13:27] VITALS: BP 126/77; PULSE 85; RESP 20; TEMP 36.6; O2SAT 100
--- NOTE | 2023-09-02 14:48 | PM.DS ---
DS: Admitting Diagnosis Discharge Date 09/03/23 Admitting Diagnosis Small bowel obstruction DS: Discharge Diagnosis Discharge Diagnosis (1) Small bowel obstruction: Code(s): K56.609 - Unspecified intestinal obstruction, unspecified as to partial versus complete obstruction Status: Acute DS: Summary Hospital Course Reason for hospitalization: This is a 42-year-old man who presented to the ER with complaints of abdominal pain. Workup in the ED showed CT evidence of a small bowel obstruction. He had no history of any abdominal surgeries. He was admitted for surgical evaluation. Hospital Course: He was treated with NG tube decompression, bowel rest, IV fluids, and analgesics. He continued to have nausea and abdominal pain. Water soluble small bowel follow through was ordered and terminated at 30 minutes with this still showing a small bowel obstruction without advancement of the oral contrast. When the initial CT was reviewed with the Radiologist, it appeared to be a closed loop small bowel obstruction. He was taken to surgery and had a laparoscopic enterolysis on 09/01/23. He was found to have an omental adhesive band around a loop of small bowel that was taken down. His NG tube was removed during surgery. His abdominal pain resolved following surgery. His diet was advanced and he was able to tolerate solids prior to discharge. He was showing signs of bowel function postop day 1. Discussed the case with Dr. Blandon and he was stable for discharge this afternoon. Status at Discharge Functional status at discharge: independent ambulation Overall status at discharge: patient is progressing back to baseline Time Spent with Patient Time attestation: Total time spent providing and/or coordinating discharge services: Time spent: Less than 30 minutes DS: Data Data Completed and Pending Labs on day of discharge: Labs from last 24 hours 09/02/23 06:33 WBC 7.0 RBC 3.96 L Hgb 12.0 L Hct 37.0 L MCV 93.4 MCH 30.3 MCHC 32.4 RDW 11.9 Plt Count 250 MPV 10.8 H Immature Gran % (Auto) 0.3 Neut % (Auto) 62.9 Lymph % (Auto) 23.8 [place] % (Auto) 10.5 H Eos % (Auto) 2.1 Baso % (Auto) 0.4 Lymph # (Auto) 1.67 [place] # (Auto) 0.7 H Eos # (Auto) 0.2 Baso # (Auto) 0.0 Abs Immat Gran (auto) 0.02 Absolute Neuts (auto) 4.4 Absolute Nucleated RBC 0.0 Nucleated RBC % 0.0 Sodium 138 Potassium 3.5 Chloride 106 Carbon Dioxide 29 Anion Gap 3 L BUN 6 L Creatinine 0.70 Estim Creat Clear Calc 124 Estimated GFR > 60 Glucose 92 Calcium 8.5 Procedures/Treatments: Procedures Operation Date: 09/01/23 16:30 Actual Procedure Side Surgeon p Diagnostic Laparoscopy with Adhesiolysis Not Applicable Jonathan Blandon, DO Imaging Radiologist's impression: ITS Impressions Abdomen/Pelvis CT 09/01/23 06:32 Impression: Persistent dilatation of several small bowel loops in the mid abdomen with possible mild wall thickening. Correlate for early small bowel obstruction endometritis. Small amount of abdominopelvic ascites, increased from prior exam. Abdomen X-Ray 09/01/23 08:23 Impression: NG tube in place. Small Bowel X-Ray 09/01/23 13:18 IMPRESSION: 1. Small bowel obstruction. Discharge Plan Discharge Attending physician on discharge: Jonathan Blandon Consulting providers: Saqib Eastman Discharging Clinician: She Lombardi Anticipated Discharge Date/Time: 09/02/23 14:48 Patient Disposition: Home, Self-Care Activity: november shower Diet: regular Wound Care Instructions: incision open to air Discharge Instructions: Follow-up with Dr. Blandon in 2 weeks. Our office will call you with time and date of appointment. No lifting more than 10-15 lbs. Okay to shower over incisions with soap and water daily. Pat dry. No submerging in water x 2 weeks. Walk at least three times daily. No driving for 3 days or until no longer on narcotic medication.
== END 2023-09-02 17:44 | disposition home or self-care (01) | DRG 337 ==
LOC: ANHED 07:18 → ANH3MEDSUR 07:24
PROVIDERS: Nurse Practitioner Family; Admitting Provider Surgery; Emergency Provider Emergency Medicine; Visit Provider Surgery
PROC: 0DNU4ZZ Release Omentum, Percutaneous Endoscopic Approach (ICD-10-PCS; CPT 49320; principal; 2023-09-01 16:30)
DX: K56.50 Intestinal adhesions [bands], unspecified as to partial versus complete obstruction (principal)
CPT/HCPCS: 36415; 74177; 74250; 80048; 80053; 83605; 83690; 85025; 96374; 99285; J0690; J1170; J1596; J2060; J2405; J2704; J3010; J7030; J7120; Q9967